=== PATIENT | female | born 1945 | race African-American/Black ===

== ENCOUNTER 2017-02-17 07:16 | Emergency (ER) | payer OTHER ==
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
[2017-02-17 07:46] VITALS: BP 152/101; PULSE 92; TEMP 97.7; BMI 27.3
== END 2017-02-17 08:33 | disposition home or self-care (01) ==
LOC: JER 07:16
DX: M54.2 Cervicalgia (principal); V43.52XA Car driver injured in collision with other type car in traffic accident, initial encounter; Y93.89 Activity, other specified; Y92.481 Parking lot as the place of occurrence of the external cause; I10 Essential (primary) hypertension
CPT/HCPCS: 99282-25